=== PATIENT | female | born 1995 | race Two or more races ===

== ENCOUNTER 2018-06-06 04:41 | Emergency (ER) | payer OTHER ==
[2018-06-06 04:46] VITALS: BP 122/70
--- NOTE | 2018-06-06 04:57 | EDPHY ---
H & P Stated Complaint: R second finger inj x20min Time Seen by Provider: 06/06/18 04:57 HPI/ROS: HPI CHIEF COMPLAINT: Right index finger injury. HISTORY OF PRESENT ILLNESS: Very pleasant 22-year-old female, otherwise healthy presents emergency room with right index finger contusion. She caught her right index finger in the car door. This injury just happened. She is neurovascularly intact and able to move this appropriately. Did not sustain laceration. Past Medical History: No medical history Past Surgical History: No surgical history Social History: Denies drugs alcohol tobacco. Family History: Noncontributory ROS REVIEW OF SYSTEMS: 10 Systems were reviewed and negative with the exception of the elements mentioned in the history of present illness. Exam Constitutional triage nursing summary reviewed, vital signs reviewed, awake/ alert. Eyes normal conjunctivae and sclera, EOMI, PERRLA. HENT normal inspection, atraumatic, moist mucus membranes, no epistaxis, neck supple/ no meningismus, no raccoon eyes. Respiratory clear to auscultation bilaterally, normal breath sounds, no respiratory distress, no wheezing. Cardiovascular rate normal, regular rhythm, no murmur, no edema, distal pulses normal. Gastrointestinal soft, non-tender, no rebound, no guarding, normal bowel sounds, no distension, no pulsatile mass. Genitourinary no CVA tenderness. Musculoskeletal right hand: Neurovascular intact with full range of motion no significant pain or swelling. Mild tenderness palpation over the mid aspect of the right index finger. no midline vertebral tenderness, full range of motion, no calf swelling, no tenderness of extremities, no meningismus, good pulses, neurovascularly intact. Skin pink, warm, & dry, no rash, skin atraumatic. Neurologic awake, alert and oriented x 3, AAOx3, moves all 4 extremities equally, motor intact, sensory intact, CN II-XII intact, normal cerebellar, normal vision, normal speech. Psychiatric normal mood/affect. Heme/Lymph/Immune no lymphadenopathy. Differential Diagnosis: Includes but is not limited to in a particular order right finger contusion, soft tissue injury, finger swelling. Fracture Medical Decision Making: Plan for this patient x-ray right finger. Re-evaluation: X-ray of the right hand: No evidence of fracture. Patient has been splinted. X-ray reviewed. No evidence of fracture interpreted by myself. Finger splint provided. Recommend Tylenol, Motrin, finger splint, ice, Source: Patient - Personal History LMP (Females 10-55): 8-14 Days Ago Current Tetanus/Diphtheria Vaccine: Yes - Medical/Surgical History Hx Asthma: No Hx Chronic Respiratory Disease: No Hx Diabetes: No Hx Cardiac Disease: No Hx Renal Disease: No Hx Cirrhosis: No Hx Alcoholism: No Hx HIV/AIDS: No Hx Splenectomy or Spleen Trauma: No Other PMH: denies - Social History Smoking Status: Never smoked Constitutional: Initial Vital Signs Temperature (C) 36.7 C 06/06/18 04:44 Heart Rate 93 06/06/18 04:44 Respiratory Rate 16 06/06/18 04:44 Blood Pressure 122/70 H 06/06/18 04:44 O2 Sat (%) 97 06/06/18 04:44 O2 Delivery Mode Room Air Allergies/Adverse Reactions: No Known Allergies Allergy (Unverified 06/06/18 04:45) Home Medications: Medication Instructions Recorded NK [No Known Home Meds] 06/06/18 Departure - Departure Disposition: Home, Routine, Self-Care Clinical Impression: Finger contusion Qualifiers: Encounter type: initial encounter Finger: index finger Damage to nail status: without damage Laterality: right Qualified Code(s): S60.021A - Contusion of right index finger without damage to nail, initial encounter Condition: Good Instructions: Contusion in Adults (ED), Hematoma (ED) Additional Instructions: 1. Finger splint for comfort. 2. Recommend ice. 3. Recommend rest. Referrals: NONE *PRIMARY CARE P,. [Primary Care Provider] - As per Instructions
== END 2018-06-06 07:07 | disposition home or self-care (01) ==
DX: S60.021A Contusion of right index finger without damage to nail, initial encounter (principal); W23.1XXA Caught, crushed, jammed, or pinched between stationary objects, initial encounter; Y92.810 Car as the place of occurrence of the external cause; Y93.9 Activity, unspecified; Y99.9 Unspecified external cause status
CPT/HCPCS: L3925